=== PATIENT | female | born 1990 | race Caucasian/White ===

== ENCOUNTER 2022-04-18 05:27 | Inpatient (IN) | payer OTHER ==
[~2022-04-18] VITALS: Ht 165.1 cm; Wt 87.5 kg
[2022-04-18] VITALS (8 sets, daily range): BP systolic 111–150; BP diastolic 54–88
[~2022-04-18 05:27] MED LIST: PREN200C PO
[2022-04-18] MEDS ORDERED: HOME MED LIST COMPLETE! XX SCH (06:00)
[2022-04-18] MEDS ORDERED: BICITRA 30ML SOLN UDC As Ordered ONE (06:33)
[2022-04-18] MEDS ORDERED: ceFAZolin 2 GM/D5W 50 ML IV BAG (J0690 PER 500MG) As Ordered ONE (06:34)
[2022-04-18] MEDS ORDERED: AZITHROMYCIN INJ 500 MG, VIAL MATE ADAPTER 1 EACH in NS 250 ML IV ONE (06:45)
[2022-04-18] MEDS ORDERED: LR 1,000 ML IV SCH ×2 (06:45→10:20)
[2022-04-18] MEDS ORDERED: LR 1,000 ML IV ONE (06:45)
[2022-04-18] MEDS ORDERED: ceFAZolin SOD 2 GM in IV 1 EA IV ONE (06:45)
[2022-04-18] MEDS ORDERED: BUPIVACAINE HCL 0.25% 30ML VIAL SC ONE (06:45)
[2022-04-18] MEDS ORDERED: OXYTOCIN DRIP 30 UNITS in IV 1 EA IV PRN ×4 (07:10)
[2022-04-18] MEDS ORDERED: ACETAMINOPHEN 650 MG SUPP PR ONE (07:10)
[2022-04-18] MEDS ORDERED: OXYTOCIN INJ 10 UNITS/ML VIAL (J2590) IV PRN (07:10)
[2022-04-18] MEDS ORDERED: BICITRA 30ML SOLN UDC PO ONE (07:10)
[2022-04-18] MEDS ORDERED: BUPIVACAINE HCL 0.25% 10ML VIAL SC ONE (07:10)
[2022-04-18 07:31] LABS: HEMATOCRIT 30.1 % (36.0-47.0); HEMOGLOBIN 10.1 g/dl (12.0-15.5); MEAN CORPUSCULAR HEMOGLOBIN 28.9 pg (27.0-33.0); MEAN CORPUSCULAR HGB CONC 33.6 g/dl (32.0-36.5); PLATELET COUNT, AUTOMATED 254 10^3/uL (150-450); WHITE BLOOD COUNT 7.9 10^3/uL (4.0-10.0)
[2022-04-18] MEDS ORDERED: OXYTOCIN 30 UNITS IN 0.9% NaCl 500ML IV BAG (J2590) As Ordered ONE ×2 (07:48→09:59)
[2022-04-18] MEDS ORDERED: MORPHINE PRES-FREE INJ 10 MG/10 ML VIAL As Ordered ONE (07:49)
[2022-04-18] MEDS ORDERED: NALOXONE INJ 0.4MG/1ML VIAL (J2310 PER 1MG) IV PRN ×2 (08:20)
[2022-04-18] MEDS ORDERED: diphenhydrAMINE 50MG/ML VIAL (J1200) IV PRN (08:20)
[2022-04-18] MEDS ORDERED: METOCLOPRAMIDE INJ 10MG/2ML VIAL (J2765 PER 1) IV PRN (08:20)
[2022-04-18] MEDS ORDERED: ONDANSETRON 4MG/2ML VIAL IV PRN ×2 (08:20→10:20)
[2022-04-18 09:04] LABS: CORD GAS HCO3 A 24.4 MEQ/L; CORD GAS O2 SAT A 25.1 %; CORD GAS PCO2 A 54.7 mmHg; CORD GAS PH A 7.268 UNITS; CORD GAS PO2 A 14.5 mmHg; CORD GAS SBC A 20.5 MEQ/L; CORD GAS TCO2 A 26.1 MEQ/L
[2022-04-18 09:09] LABS: CORD GAS ABE V -4.4; CORD GAS O2 SAT V 79.3 %; CORD GAS PCO2 V 39.9 mmHg; CORD GAS PH V 7.34 UNITS; CORD GAS PO2 V 33.6 mmHg; CORD GAS SBC V 20.5 MEQ/L; CORD GAS TCO2 V 22.3 MEQ/L
[2022-04-18] MEDS ORDERED: KETOROLAC 60MG 2ML VIAL As Ordered ONE (09:27)
[2022-04-18] MEDS ORDERED: PHENYLephrine 500MCG 5ML (100MCG/ML) SYRINGE As Ordered ONE (09:27)
[2022-04-18] MEDS ORDERED: ONDANSETRON 4MG/2ML VIAL As Ordered ONE (09:27)
[2022-04-18] MEDS ORDERED: RHOGAM 300 MCG (1500 IU) INJ (J2790) IM SCH (09:45)
[2022-04-18] MEDS ORDERED: PERCOCET 5MG/325MG TAB PO PRN ×2 (09:45)
[2022-04-18] MEDS ORDERED: ACETAMINOPHEN TAB 650MG DOSE (2X325MG) PO PRN (09:45)
[2022-04-18] MEDS: LR 1,000 ML IV SCH ×2 (09:45→20:15)
[2022-04-18] MEDS ORDERED: MOM 30ML SUSPENSION UDC PO PRN (09:45)
[2022-04-18] MEDS ORDERED: OXYTOCIN DRIP 30 UNITS in IV 1 EA IV SCH ×4 (09:45)
[2022-04-18] MEDS ORDERED: DOCUSATE SODIUM 100MG CAPSULE PO PRN (09:45)
[2022-04-18] MEDS ORDERED: SIMETHICONE 80MG CHEW TAB PO PRN (09:45)
[2022-04-18] MEDS ORDERED: METHYLERGONOVINE MALEATE 0.2 MG TAB PO PRN (09:45)
[2022-04-18] MEDS ORDERED: MEASLES,MUMPS,RUBELLA VACCINE INJ (MMR-II) (90707) SC SCH (09:45)
[2022-04-18] MEDS ORDERED: ANUSOL HC CREAM 30GM TOP PRN (09:45)
[2022-04-18] MEDS ORDERED: fentaNYL 100 MCG/2 ML INJECTION IV PRN (10:20)
[2022-04-18] MEDS: KETOROLAC 30 MG/ML 1ML VIAL IV SCH ×2 (16:07→22:54)
[2022-04-19 02:00] VITALS: BP 119/79
[2022-04-19] MEDS: KETOROLAC 30 MG/ML 1ML VIAL IV SCH (05:03)
[2022-04-19 06:00] VITALS: BP 119/70
[2022-04-19 07:04] LABS: HEMATOCRIT 27.7 % (36.0-47.0); HEMOGLOBIN 9.3 g/dl (12.0-15.5); MEAN CORPUSCULAR HEMOGLOBIN 29.2 pg (27.0-33.0); MEAN CORPUSCULAR HGB CONC 33.6 g/dl (32.0-36.5); MEAN CORPUSCULAR VOLUME 87.1 fl (80.0-96.0); PLATELET COUNT, AUTOMATED 216 10^3/uL (150-450); RED BLOOD COUNT 3.18 10^6/uL (4.00-5.40)
[2022-04-19] MEDS: PRENATAL VITAMINS CHEWABLE TABLET PO SCH (08:32)
[2022-04-19 10:00] VITALS: BP 108/56
[2022-04-19] MEDS: IBUPROFEN 600MG TAB PO PRN ×2 (11:30→19:34)
[2022-04-19 18:00] VITALS: BP 122/64
[2022-04-19 22:00] VITALS: BP 130/72
[2022-04-20] MEDS: ACETAMINOPHEN 500 MG TAB PO PRN ×2 (00:36→10:21)
[2022-04-20 02:00] VITALS: BP 128/73
[2022-04-20] MEDS: IBUPROFEN 600MG TAB PO PRN ×2 (05:16→16:48)
[2022-04-20 06:00] VITALS: BP 133/83
[2022-04-20] MEDS ORDERED: COLA100C5 PO (08:32)
[2022-04-20] MEDS ORDERED: ACET-683 PO (08:32)
[2022-04-20] MEDS ORDERED: IBUP-1022 PO (08:32)
[2022-04-20] MEDS: PRENATAL VITAMINS CHEWABLE TABLET PO SCH (09:04)
[2022-04-20 10:00] VITALS: BP 126/81
== END 2022-04-20 19:25 | disposition home or self-care (01) | DRG 772 ==
LOC: M LDI 05:27 → M OBS 12:15
PROVIDERS: ADMIT Obstetrics & Gynecology; ATTEND Obstetrics & Gynecology
PROC: 10D00Z1 Extraction of Products of Conception, Low, Open Approach (ICD-10-PCS; principal; 2022-04-18 07:30)
DX: O34.211 Maternal care for low transverse scar from previous cesarean delivery (principal); O41.03X0 Oligohydramnios, third trimester, not applicable or unspecified; Z37.0 Single live birth; Z3A.39 39 weeks gestation of pregnancy; Z88.0 Allergy status to penicillin; O36.8130 Decreased fetal movements, third trimester, not applicable or unspecified